=== PATIENT | female | born 1945 | race Caucasian/White ===

== ENCOUNTER 2019-05-03 20:35 | Inpatient (IN) | payer MEDICAID ==
[~2019-05-03] VITALS: Ht 162.6 cm; Wt 66.7 kg
[2019-05-03] MEDS ORDERED: NITROGLYCERIN 50MG PREMIX 250 ML IV ONE (21:00)
[2019-05-03] MEDS ORDERED: NITROGLYCERIN 0.1MG/HR PATCH TOP ONE (21:00)
[2019-05-03] MEDS ORDERED: ASPIRIN 81MG TABLET PO ONE (21:00)
[2019-05-03 21:01] LABS: BASOPHILS % 0.3 % (0.0-2.0); EOSINOPHILS % 1.8 % (0.0-5.0); HEMATOCRIT. 28.4 % (36.0-48.0); HEMOGLOBIN. 9.5 g/dL (12.0-16.0); LYMPHOCYTES % 20.4 % (20.0-50.0); MEAN CORPUSCULAR HEMOGLOBIN 28.7 pg (28.0-32.0); MEAN CORPUSCULAR VOLUME 85.4 fL (81.0-99.0); MEAN PLATELET VOLUME 7.7 fl (7.4-10.4); MONOCYTES % 3.6 % (2.0-8.0); NEUTROPHILS % 73.9 % (40.0-76.0); PLATELET 306 x1000/uL (130-400); RED BLOOD CELL COUNT 3.32 mill/uL (4.2-5.4)
[2019-05-03 21:06] LABS: CHLORIDE 94 mEq/L (98-107)
[2019-05-03 21:28] LABS: BG BILEVEL POS AIRWAY PRESSURE 15/5; BG CARBOXYHEMOGLOBIN 0.2 % (0.5-1.5); BG DEOXYHEMOGLOBIN 0.4 % (0.0-5.0); BG FRACTION INSPIRED OXYGEN 100; BG HCO3 ACT 17.9 mmol/L (22.0-26.0); BG METHEMOGLOBIN 0.3 % (0.0-1.5); BG OXYGEN SATURATION 99.6 % (92.0-98.5); BG OXYHEMOGLOBIN 99.1 % (94.0-97.0); BG PCO2 29.7 mmHg (35.0-45.0); BG PH 7.398 (7.350-7.450); BG PO2 488.4 mmHg (75.0-100.0); BG SAMPLE SITE RIGHT BRACHIAL; BG TOTAL HEMOGLOBIN 10.1 g/dL (12.0-18.0); BG VENT MODE MASK - BIPAP
[2019-05-03] MEDS ORDERED: FUROSEMIDE 40MG/4ML VIAL IVP ONE (22:00)
[2019-05-03] MEDS ORDERED: FUROSEMIDE 40MG/4ML VIAL IV NR (23:00)
[2019-05-04] VITALS (58 sets, daily range): BP systolic 106–181; BP diastolic 59–95
[2019-05-04] MEDS ORDERED: DEXTROSE 50% WATER 50ML SYRINGE IV PRN (02:30)
[2019-05-04] MEDS: NITROGLYCERIN 50MG PREMIX 250 ML IV PRN ×2 (02:57→06:16)
[2019-05-04 05:35] LABS: BASOPHILS % 0.1 % (0.0-2.0); EOSINOPHILS % 0.1 % (0.0-5.0); HEMATOCRIT. 27.4 % (36.0-48.0); HEMOGLOBIN. 9.2 g/dL (12.0-16.0); LYMPHOCYTES % 8.6 % (20.0-50.0); MEAN CORPUSCULAR HEMOGLOBIN 28.8 pg (28.0-32.0); MEAN CORPUSCULAR VOLUME 85.3 fL (81.0-99.0); MEAN PLATELET VOLUME 9.4 fl (7.4-10.4); MONOCYTES % 3.7 % (2.0-8.0); NEUTROPHILS % 87.5 % (40.0-76.0); PLATELET 308 x1000/uL (130-400); RED BLOOD CELL COUNT 3.21 mill/uL (4.2-5.4); RED CELL DISTRIBUTION WIDTH 13.6 % (11.6-14.6)
[2019-05-04] MEDS: BLOOD SUGAR DIAGNOSTIC STRIP TEST SCH ×4 (06:12→20:55)
[2019-05-04] MEDS: INSULIN LISPRO 100 UNITS/ML SUBCUT SCH ×4 (06:20→20:54)
[2019-05-04 07:20] LABS: BG BASE EXCESS -6.3 mmol/L (-2.0-2.0); BG CARBOXYHEMOGLOBIN 0.3 % (0.5-1.5); BG DEOXYHEMOGLOBIN 1.3 % (0.0-5.0); BG HCO3 ACT 17.2 mmol/L (22.0-26.0); BG METHEMOGLOBIN 0.4 % (0.0-1.5); BG OXYGEN SATURATION 98.7 % (92.0-98.5); BG PH 7.407 (7.350-7.450); BG PO2 145.9 mmHg (75.0-100.0); BG SAMPLE SITE RIGHT BRACHIAL; BG TOTAL HEMOGLOBIN 10.5 g/dL (12.0-18.0); BG VENT MODE MASK - BIPAP; BG VENT RATE 12 set
[2019-05-04] MEDS: ENOXAPARIN 30MG/0.3ML SYR SUBCUT SCH ×2 (09:00→09:06)
[2019-05-04] MEDS: FAMOTIDINE 20MG/2ML VIAL IV SCH (09:00)
[2019-05-04] MEDS: FUROSEMIDE 100MG/10ML VIAL IVP SCH ×2 (09:07→20:54)
[2019-05-04] MEDS ORDERED: LIDOCAINE HCL/PF 1% 2ML VIAL ONE (09:13)
[2019-05-04] MEDS: HYDRALAZINE 20MG/ML VIAL IV PRN ×2 (11:00→18:41)
[2019-05-04] MEDS: AMLODIPINE 5MG TABLET PO SCH ×2 (11:00→20:55)
[2019-05-04] MEDS: MORPHINE SULFATE 4 MG/ML CPJ (NOT FOR IM USE) IV PRN (11:01)
[2019-05-04] MEDS ORDERED: ONDANSETRON HCL 4MG/2ML INJ IV PRN (18:15)
[2019-05-04] MEDS: IPRATROPIUM/ALBUTEROL 0.5-3(2.5)MG/3ML NEB HHN SCH (20:05)
[2019-05-04] MEDS ORDERED: SPIR25TA6 PO (23:49)
[2019-05-04] MEDS ORDERED: HYDR-4134 PO (23:49)
[2019-05-04] MEDS ORDERED: CLON0.2T PO (23:49)
[2019-05-04] MEDS ORDERED: METO-539 PO (23:49)
[2019-05-04] MEDS ORDERED: ATOR40TA70 PO (23:49)
[2019-05-04] MEDS ORDERED: ASPI-1393 PO (23:49)
[2019-05-05] VITALS (36 sets, daily range): BP systolic 92–199; BP diastolic 22–97
[2019-05-05] MEDS: IPRATROPIUM/ALBUTEROL 0.5-3(2.5)MG/3ML NEB HHN SCH ×4 (01:43→19:54)
[2019-05-05 05:53] LABS: BASOPHILS % 0.4 % (0.0-2.0); EOSINOPHILS % 0.3 % (0.0-5.0); HEMATOCRIT. 32.7 % (36.0-48.0); HEMOGLOBIN. 11.1 g/dL (12.0-16.0); LYMPHOCYTES % 11.9 % (20.0-50.0); MEAN PLATELET VOLUME 9.1 fl (7.4-10.4); MONOCYTES % 3.7 % (2.0-8.0); NEUTROPHILS % 83.7 % (40.0-76.0); PLATELET 387 x1000/uL (130-400); RED BLOOD CELL COUNT 3.84 mill/uL (4.2-5.4); RED CELL DISTRIBUTION WIDTH 13.7 % (11.6-14.6)
[2019-05-05 06:05] LABS: PHOSPHORUS 5.1 mg/dL (2.5-4.9)
[2019-05-05] MEDS: INSULIN LISPRO 100 UNITS/ML SUBCUT SCH ×4 (06:16→22:56)
[2019-05-05] MEDS: BLOOD SUGAR DIAGNOSTIC STRIP TEST SCH ×4 (06:16→21:00)
[2019-05-05 08:01] LABS: BG BASE EXCESS -0.6 mmol/L (-2.0-2.0); BG CARBOXYHEMOGLOBIN 0.3 % (0.5-1.5); BG DEOXYHEMOGLOBIN 2.2 % (0.0-5.0); BG HCO3 ACT 23.6 mmol/L (22.0-26.0); BG METHEMOGLOBIN 0.3 % (0.0-1.5); BG OXYGEN SATURATION 97.8 % (92.0-98.5); BG OXYHEMOGLOBIN 97.2 % (94.0-97.0); BG PCO2 37.3 mmHg (35.0-45.0); BG PH 7.419 (7.350-7.450); BG PO2 106.7 mmHg (75.0-100.0); BG SAMPLE SITE RIGHT RADIAL; BG TOTAL HEMOGLOBIN 11.6 g/dL (12.0-18.0); BG VENT MODE NASAL CANNULA
[2019-05-05] MEDS: FUROSEMIDE 100MG/10ML VIAL IVP SCH (08:44)
[2019-05-05] MEDS: AMLODIPINE 5MG TABLET PO SCH ×2 (08:44→20:56)
[2019-05-05] MEDS: FAMOTIDINE 20MG/2ML VIAL IV SCH (08:44)
[2019-05-05] MEDS: LOSARTAN POTASSIUM 50 MG TABLET PO SCH (09:42)
[2019-05-05] MEDS: MORPHINE SULFATE 4 MG/ML CPJ (NOT FOR IM USE) IV PRN (10:46)
[2019-05-05] MEDS ORDERED: ONDANSETRON HCL 4MG/2ML INJ IV PRN (10:48)
[2019-05-05] MEDS: HYDRALAZINE 20MG/ML VIAL IV PRN (13:37)
[2019-05-05] MEDS ORDERED: REGADENOSON 0.4 MG/5 ML IV NR (19:45)
[2019-05-05] MEDS ORDERED: SODIUM CHLORIDE 0.9% 500 ML IV ONE (20:00)
[2019-05-06] VITALS (11 sets, daily range): BP systolic 127–168; BP diastolic 53–93
[2019-05-06] MEDS: IPRATROPIUM/ALBUTEROL 0.5-3(2.5)MG/3ML NEB HHN SCH ×4 (02:19→21:08)
[2019-05-06 05:39] LABS: CHLORIDE 90 mEq/L (98-107)
[2019-05-06 06:03] LABS: AMYLASE 101 IU/L (25-115)
[2019-05-06] MEDS: BLOOD SUGAR DIAGNOSTIC STRIP TEST SCH ×4 (07:30→20:44)
[2019-05-06] MEDS: INSULIN LISPRO 100 UNITS/ML SUBCUT SCH ×4 (08:00→20:45)
[2019-05-06] MEDS: LOSARTAN POTASSIUM 50 MG TABLET PO SCH (08:41)
[2019-05-06] MEDS: AMLODIPINE 5MG TABLET PO SCH ×2 (08:41→20:35)
[2019-05-06] MEDS ORDERED: REGADENOSON 0.4 MG/5 ML IV ONE (10:20)
[2019-05-06] MEDS: FAMOTIDINE 20MG/2ML VIAL IV SCH (12:14)
[2019-05-06] MEDS: ENOXAPARIN 30MG/0.3ML SYR SUBCUT SCH (12:15)
[2019-05-06] MEDS ORDERED: SODIUM CHLORIDE 0.45% 1,000 ML IV SCH (12:45)
[2019-05-06] MEDS: SODIUM CHLORIDE 0.9% 1,000 ML IV SCH (20:37)
[2019-05-07] VITALS (11 sets, daily range): BP systolic 148–173; BP diastolic 57–139
[2019-05-07] MEDS: HYDRALAZINE 20MG/ML VIAL IV PRN ×2 (00:33→19:08)
[2019-05-07] MEDS: IPRATROPIUM/ALBUTEROL 0.5-3(2.5)MG/3ML NEB HHN SCH ×4 (01:37→21:45)
[2019-05-07 02:35] LABS: CLARITY URINE TURBID (CLEAR); COLOR URINE YELLOW (YELLOW); KETONES URINE NEGATIVE (NEGATIVE); LEUKOCYTE ESTERASE URINE 3+ (NEGATIVE); NITRITE URINE POSITIVE (NEGATIVE); OCCULT BLOOD URINE 2+ (NEGATIVE); PROTEIN URINE 1+ (NEGATIVE); SPECIFIC GRAVITY URINE 1.007 (1.005-1.030); UROBILINOGEN URINE 0.2 E.U./dL (0.2-1.0)
[2019-05-07] MEDS: MORPHINE SULFATE 4 MG/ML CPJ (NOT FOR IM USE) IV PRN (03:47)
[2019-05-07 06:35] LABS: BASOPHILS % 0.7 % (0.0-2.0); EOSINOPHILS % 2.7 % (0.0-5.0); HEMATOCRIT. 28.3 % (36.0-48.0); HEMOGLOBIN. 9.6 g/dL (12.0-16.0); LYMPHOCYTES % 17.3 % (20.0-50.0); MEAN CORPUSCULAR VOLUME 85.7 fL (81.0-99.0); MEAN PLATELET VOLUME 8.3 fl (7.4-10.4); MONOCYTES % 4.9 % (2.0-8.0); NEUTROPHILS % 74.4 % (40.0-76.0); PLATELET 409 x1000/uL (130-400)
[2019-05-07] MEDS: INSULIN LISPRO 100 UNITS/ML SUBCUT SCH ×4 (07:58→21:00)
[2019-05-07] MEDS: BLOOD SUGAR DIAGNOSTIC STRIP TEST SCH ×4 (07:58→21:32)
[2019-05-07] MEDS: FAMOTIDINE 20MG/2ML VIAL IV SCH (08:36)
[2019-05-07] MEDS: AMLODIPINE 5MG TABLET PO SCH ×2 (08:38→21:19)
[2019-05-07] MEDS: ENOXAPARIN 30MG/0.3ML SYR SUBCUT SCH (08:38)
[2019-05-07] MEDS: SODIUM CHLORIDE 0.9% 1,000 ML IV SCH (12:11)
[2019-05-07] MEDS ORDERED: LEVOFLOXACIN 250MG TABLET PO SCH (17:00)
[2019-05-07] MEDS: CLONIDINE 0.1MG TABLET PO SCH ×2 (17:31→21:19)
[2019-05-07] MEDS ORDERED: ACETAMINOPHEN 325MG TABLET PO PRN (21:45)
[2019-05-08] VITALS (13 sets, daily range): BP systolic 86–176; BP diastolic 44–75
[2019-05-08] MEDS: IPRATROPIUM/ALBUTEROL 0.5-3(2.5)MG/3ML NEB HHN SCH ×4 (02:04→20:55)
[2019-05-08] MEDS: SODIUM CHLORIDE 0.9% 1,000 ML IV SCH ×2 (03:56→11:45)
[2019-05-08] MEDS: CLONIDINE 0.1MG TABLET PO SCH ×2 (06:29→14:00)
[2019-05-08] MEDS: BLOOD SUGAR DIAGNOSTIC STRIP TEST SCH ×3 (07:30→21:24)
[2019-05-08 08:47] LABS: CLARITY URINE CLOUDY (CLEAR); COLOR URINE YELLOW (YELLOW); KETONES URINE NEGATIVE (NEGATIVE); LEUKOCYTE ESTERASE URINE 2+ (NEGATIVE); NITRITE URINE NEGATIVE (NEGATIVE); OCCULT BLOOD URINE 2+ (NEGATIVE); PH URINE 5.5 (4.5-8.0); PROTEIN URINE 2+ (NEGATIVE); SPECIFIC GRAVITY URINE 1.011 (1.005-1.030); UROBILINOGEN URINE 0.2 E.U./dL (0.2-1.0)
[2019-05-08] MEDS: ENOXAPARIN 30MG/0.3ML SYR SUBCUT SCH (09:00)
[2019-05-08] MEDS: AMLODIPINE 5MG TABLET PO SCH ×2 (09:01→21:13)
[2019-05-08] MEDS: FAMOTIDINE 20MG/2ML VIAL IV SCH (09:01)
[2019-05-08] MEDS: INSULIN LISPRO 100 UNITS/ML SUBCUT SCH ×3 (09:20→21:00)
[2019-05-08] MEDS ORDERED: CLONIDINE 0.1MG TABLET PO SCH (21:00)
== END 2019-05-08 22:10 | disposition home or self-care (01) | DRG 194 ==
LOC: ER 20:35 → 3WST 21:51 → EDBEDREQSVC 21:53 → EDBEDREQ 21:53 → ENRESERV 22:06 → MICUSO 05-04 01:42 → 5EST 05-05 14:46
PROVIDERS: ADMIT Internal Medicine; ATTEND Internal Medicine
PROC: 5A09357 Assistance with Respiratory Ventilation, Less than 24 Consecutive Hours, Continuous Positive Airway Pressure (ICD-10-PCS; 2019-05-03)
PROC: 5A09357 Assistance with Respiratory Ventilation, Less than 24 Consecutive Hours, Continuous Positive Airway Pressure (ICD-10-PCS; principal; 2019-05-04)
DX: I13.0 Hypertensive heart and chronic kidney disease with heart failure and stage 1 through stage 4 chronic kidney disease, or unspecified chronic kidney disease (principal); J96.00 Acute respiratory failure, unspecified whether with hypoxia or hypercapnia; J18.9 Pneumonia, unspecified organism; N17.9 Acute kidney failure, unspecified; E86.0 Dehydration; N18.3 Chronic kidney disease, stage 3 (moderate); D63.8 Anemia in other chronic diseases classified elsewhere; I73.9 Peripheral vascular disease, unspecified; I50.43 Acute on chronic combined systolic (congestive) and diastolic (congestive) heart failure; N39.0 Urinary tract infection, site not specified; E87.1 Hypo-osmolality and hyponatremia; Z60.2 Problems related to living alone; I49.9 Cardiac arrhythmia, unspecified; R79.89 Other specified abnormal findings of blood chemistry; R74.0 Nonspecific elevation of levels of transaminase and lactic acid dehydrogenase [LDH]; T50.2X5A Adverse effect of carbonic-anhydrase inhibitors, benzothiadiazides and other diuretics, initial encounter; Z79.899 Other long term (current) drug therapy; Z79.82 Long term (current) use of aspirin; Y92.89 Other specified places as the place of occurrence of the external cause
CPT/HCPCS: 36415; 36600; 71045; 76700; 78452; 80048; 81003; 82150; 82375; 82805; 82962; 83735; 83880; 84100; 84443; 84484; 87077; 87186; 93005; 93017; 93306; 93923; 93970; 94640; 94660; 97162; 97166; 99291; A9500; J0360; J1650; J1815; J1940; J2270; J2405; J2785; J3490; J7030; J7620